=== PATIENT | male | born 1945 ===

== ENCOUNTER 2016-12-21 09:43 | Emergency (ER) | payer SELFPAY ==
--- NOTE | ~2016-12-21 | ER ---
PATIENT'S NAME: RANDAL AMOR [facility] AGE: 71 Y [address] ROOM: [place] [address] LOCATION: [facility] ADMIT DATE: 12/21/2016 ER/Outpatient Report DISCHARGE DATE: 12/21/2016 FAMILY PHYSICIAN: PHYSICIAN, ABIGAIL ATTENDING PHYSICIAN: Serenity Fuentes TIME OF ARRIVAL: 0943 hours. TIME SEEN: 0959 hours. IDENTIFICATION: A 71-year-old male. CHIEF COMPLAINT: Rash. HISTORY OF PRESENT ILLNESS: The patient does not speak Turkmen, but history is obtained through the hospital certified court interpreter. He has diffuse erythematous rash primarily concentrated on his forearms, upper arms, chest, abdomen, and lower extremities. Nothing on his hands or feet. None of his roommates have similar symptoms. No allergen exposure that we could identify. At first, he said he was using a soap, then he said that he had used that soap previously. He has since stopped using that soap. No shortness of breath. No other problems or concerns. No fever or chills. PAST MEDICAL HISTORY: ALLERGIES: NO KNOWN DRUG ALLERGIES. CURRENT MEDICATIONS: A prostate medicine, he cannot remember the name. He has not taken anything for the itch. SOCIAL HISTORY: The patient lives in [place] and works at [employer]. Tobacco use: None. Alcohol use: None. Drug use: None. REVIEW OF SYSTEMS: All systems reviewed and negative other than what is noted in the HPI. PHYSICAL EXAMINATION: PATIENT'S NAME: RANDAL AMOR [facility] AGE: 71 Y [address] ROOM: [place] [address] LOCATION: [facility] ADMIT DATE: 12/21/2016 ER/Outpatient Report DISCHARGE DATE: 12/21/2016 FAMILY PHYSICIAN: PHYSICIAN, ABIGAIL ATTENDING PHYSICIAN: Serenity Fuentes VITAL SIGNS: Height 6 feet 0 inches and weight 96.7 kg. Blood pressure 135/66, pulse 80, respirations 16, temperature 96.8, and saturation is 98%. GENERAL: A 71-year-old male, in obvious distress with itching. HEENT: Head: Normocephalic, atraumatic. Ears: TMs translucent, both ears. Nose: Mucosa pink, no lesions or drainage. Mouth: No lesions. Pharynx: Benign. NECK: Supple. No lymphadenopathy. No thyromegaly. No carotid bruits. LUNGS: Clear to auscultation. HEART: Regular rate and rhythm. No murmur, rub, or gallop. ABDOMEN: Bowel sounds present. Soft and nondistended. No hepatosplenomegaly. No palpable masses. Nontender. SKIN: The patient has diffuse, fine, erythematous rash over his arms, back, abdomen, chest, and lower extremities. Nothing in the web spaces of his fingers. Nothing that looks like tunneling. It is not concentrated in his axilla. It is maybe a little more heavily concentrated just below his umbilicus. He does have some excoriated areas. IMPRESSION: Allergic rash. PLAN: Prednisone 20 mg b.i.d. for 5 days. Benadryl 25 to 50 mg q.6 hours p.r.n. itching. Aveeno bath p.r.n. [facility], follow up sooner if any problems or concerns. MD FERN NICK/saadia /[id number] d: 12/21/161900 t: 12/22/16 1427, OUTPATIENT REPORT
== END 2016-12-21 11:01 | disposition disaster alternative care site (69) ==
LOC: GMED 09:43
DX: T78.40XA Allergy, unspecified, initial encounter (principal)